=== PATIENT | female | born 1995 | race Caucasian/White ===

== ENCOUNTER 2023-03-07 21:52 | Emergency (ER) | payer MEDICAID ==
[~2023-03-07] VITALS: Ht 152.4 cm; Wt 98.0 kg
--- NOTE | 2023-03-07 22:02 | NUR ---
BIBS C/O ABDOMINAL PAIN. AXO4 PRIMARILY AZERI SPEAKING. AMBULATORY. TO ER BED 2 FOR EVAL
--- NOTE | 2023-03-07 22:05 | NUR ---
URINE COLLECTED SENT TO LAB
--- NOTE | 2023-03-07 22:09 | NUR ---
DR. VAUGHAN AT BEDSIDE
[2023-03-07] MEDS ORDERED: MECLIZINE HCL 25 MG TABLET ONE (22:20)
--- NOTE | 2023-03-07 22:29 | NUR ---
LAB AT BEDSIDE
[2023-03-07] MEDS ORDERED: MECLIZINE HCL 12.5 MG TABLET PO ONE (22:30)
[2023-03-07 23:01] LABS: BASOPHILS # (AUTO) 0.1 K/uL (0.0-0.2); BASOPHILS % (AUTO) 0.9 % (0.0-2.0); EOSINOPHILS % (AUTO) 3.4 % (0.0-6.0); HEMATOCRIT 42 % (33-45); HEMOGLOBIN 13.6 g/dL (11.5-14.8); MEAN CORPUSCULAR HGB CONC 33 g/dl (31.0-36.0); MEAN CORPUSCULAR VOLUME 87 fL (82-100); MONOCYTES # (AUTO) 0.7 K/uL (0.1-1.30); MONOCYTES % (AUTO) 9.5 % (2.0-12.0); NEUTROPHILS # (AUTO) 4.4 K/uL (1.8-8.9); NEUTROPHILS % (AUTO) 59.2 % (43.0-81.0); PLATELET COUNT (AUTO) 276 K/uL (150-450); RED BLOOD CELL COUNT(AUTO) 4.79 MIL/uL (4.0-5.2); WHITE BLOOD COUNT (AUTO) 7.4 K/uL (4.3-11.0)
[2023-03-07 23:01] LABS: BILIRUBIN,URINE NEGATIVE (NEGATIVE); COLOR,URINE YELLOW (YELLOW); LEUKOCYTE ESTERASE ,URINE 2+ (NEGATIVE); NITRITE, URINE NEGATIVE (NEGATIVE); PROTEIN,URINE TRACE mg/dl (NEGATIVE); UGLUCOSE NEGATIVE (NEGATIVE); UROBILINOGEN,URINE 0.2 EU/dL (0.2)
[2023-03-07 23:29] LABS: ALBUMIN 3.8 g/dL (3.4-5.0); BILIRUBIN,DIRECT 0.1 mg/dL (0.0-0.2); BILIRUBIN,TOTAL 0.3 mg/dL (0.2-1.0); CALCIUM, SERUM 9.2 mg/dL (8.5-10.1); CREATININE 0.7 mg/dL (0.6-1.3); TOTAL PROTEIN, SERUM 7.7 g/dL (6.4-8.2)
[2023-03-07 23:40] LABS: BACTERIA,URINE Rare /HPF (None Seen); SQUAMOUS EPITHELIAL CELL,UR Few /HPF (None Seen)
[2023-03-08] MEDS ORDERED: NITR100C6 PO (00:09)
[2023-03-08] MEDS ORDERED: MECL-159 PO (00:09)
[2023-03-08] MEDS ORDERED: NITROFURANTOIN/MONOHYDRATE MACROCRYSTALS 100 MG CAPSULE ONE (00:12)
[2023-03-08 00:16] VITALS: BP 146/92
--- NOTE | 2023-03-08 00:16 | NUR ---
Patient discharged to home in stable condition. Written and verbal after care instructions given. Patient verbalizes understanding of instruction.
[2023-03-08] MEDS ORDERED: NITROFURANTOIN/MONOHYDRATE MACROCRYSTALS 100 MG CAPSULE PO ONE (00:30)
== END 2023-03-08 00:17 | disposition home or self-care (01) ==
LOC: ER 21:55
DX: N39.0 Urinary tract infection, site not specified (principal); R42 Dizziness and giddiness
CPT/HCPCS: 99283; 85025; 80048; 87086; 83690; 80076; 84703; 81001; 36415; J8597